=== PATIENT | female | born 1980 | race Caucasian/White ===

== ENCOUNTER → 2017-04-06 | Outpatient (CLI) | payer BC, OTHER ==
[2017-04-06 08:02] LABS: HCG, SERUM QUANTITATIVE < 1.0 MIU/ML
[2017-04-06 08:19] LABS: ESTRADIOL 59.1 PG/ML; FOLLICLE STIMULATING HORMONE 8.6 mIU/mL; LUTEINIZING HORMONE 4.1 mIU/mL; PROGESTERONE 0.4 NG/ML
--- NOTE | 2017-04-06 08:26 | REP ---
Transvaginal pelvic sonography: History: Infertility. Follicle study. Findings: Uterine dimensions are normal at 7.9 x 3.9 x 5.4 cm. Endometrial stripe is 0.9 cm thick and centrally placed. No free fluid is seen. No focal uterine mass. The overall dimensions of the right ovary are 3.2 x 2.2 x 2.2 cm. There are no follicles over a centimeter in the right ovary. There are 18 follicles seen in the right ovary ranging in size of 0.3-0.8 cm. The dimensions of the left ovary are 2.7 x 1.5 x 2.1 cm. There are no follicles over a centimeter in the left ovary today. There are 10 follicles in the left ovary ranging in size from 0.2-0.9 cm. No ovarian mass seen. Impression: Ovarian follicle study as above. Signed by Geovanny Burgos MD 04/06/2017 12:38 P
== END ==
LOC: M RAD 07:26
PROVIDERS: ATTEND Obstetrics & Gynecology Reproductive Endocrinology
DX: N97.9 Female infertility, unspecified (principal); N83.02 Follicular cyst of left ovary

== ENCOUNTER → 2017-04-10 | Outpatient (CLI) | payer BC, OTHER ==
--- NOTE | 2017-04-10 08:14 | REP ---
Pelvic ultrasound, endovaginal imaging for follicle evaluation: Right ovary: There are four follicles greater than 10 mm maximally measuring as follows: 13.1 mm, 12.9 mm, 12.4 mm, 12.8 mm. Additionally, there approximately 18 follicles measuring 2.8-8.9 mm. Right ovary measures 3.8 x 2.1 x 2.079. Left ovary: There are four follicles greater than 10 mm maximally measuring as follows: 2.5 mm of 16: Mm, 50.7 mm of 12.1 mm. Additionally, there are approximately 7 follicles measuring 3.6-7.8 mm. The left ovary measures 3.7 x 2.1 x 3.6 cm. The uterus is retroverted and measures 8.0 x 4.0 x 5 point centimeters. The endometrium measures 9.5 mm thickness and has a trilaminar appearance. Signed by Gurjit Rice MD 04/10/2017 08:05 A
[2017-04-10 09:25] LABS: LUTEINIZING HORMONE 0.8 mIU/mL; PROGESTERONE < 0.2 NG/ML
[2017-04-10 09:26] LABS: ESTRADIOL 421.4 PG/ML
== END ==
LOC: M RAD 07:24
PROVIDERS: ATTEND Obstetrics & Gynecology Reproductive Endocrinology
DX: E28.9 Ovarian dysfunction, unspecified (principal); N83.01 Follicular cyst of right ovary; N83.02 Follicular cyst of left ovary; N85.4 Malposition of uterus

== ENCOUNTER → 2017-04-13 | Outpatient (CLI) | payer BC, OTHER ==
--- NOTE | 2017-04-13 08:24 | REP ---
Transvaginal pelvic sonography: History: Infertility study. Findings: Transvaginal sonography again demonstrates a retroverted uterus measuring 9.4 x 4.4 x 5.6 cm. Endometrial stripe is 1.3 cm thick. There is a trace of fluid the cul-de-sac. No focal uterine mass is seen. The overall dimensions of the right ovary today are 5.2 x 3.3 x 3.8 cm. The right ovary contains 10 follicles over a centimeter measured as follows: 1.7 x 1.2, 1.5 x 1.7, 1.2 x 1.7, 1.0 x 0.8, 1.6 x 0.6, 2.7 x 1.6, 1.2 x 1.0, 1.1 by 0.7, 1.6 x 1.38, and 1.4 x 1.1 cm. In addition, the right ovary contains eight follicles ranging in size from 0.4-0.9 cm. The overall dimensions of the left ovary today are 4.9 x 3.2 x 2.5 cm. There are five follicles over a centimeter in the left ovary measured as follows: 2.0 x 1.2, 1.2 x 0.6, 2.6 x 1.5, 2.1 x 1.1, and 1.8 x 1.4 cm. In addition, the left ovary contains three follicles from 0.6-0.9 cm in size. Impression: Ovarian follicle study as above. Signed by Geovanny Burgos MD 04/13/2017 08:16 A
[2017-04-13 10:36] LABS: PROGESTERONE 0.4 NG/ML
[2017-04-13 10:37] LABS: LUTEINIZING HORMONE 0.9 mIU/mL
== END ==
LOC: M RAD 07:27
PROVIDERS: ATTEND Obstetrics & Gynecology Reproductive Endocrinology
DX: E28.9 Ovarian dysfunction, unspecified (principal); N85.4 Malposition of uterus; N83.01 Follicular cyst of right ovary; N83.02 Follicular cyst of left ovary

== ENCOUNTER → 2017-04-24 | Outpatient (CLI) | payer BC, OTHER ==
[2017-04-24 09:14] LABS: ESTRADIOL 1058.4 PG/ML
[2017-04-24 10:14] LABS: PROGESTERONE 69.5 NG/ML
== END ==
LOC: M LAB 06:40
DX: N97.9 Female infertility, unspecified (principal)
CPT/HCPCS: 84443

== ENCOUNTER → 2017-04-29 | Outpatient (CLI) | payer BC, OTHER ==
[2017-04-29 07:35] LABS: HCG, SERUM QUANTITATIVE 72 MIU/ML
[2017-04-29 09:27] LABS: PROGESTERONE 55.5 NG/ML
== END ==
LOC: M LAB 06:48
DX: N97.9 Female infertility, unspecified (principal)
CPT/HCPCS: 84702

== ENCOUNTER → 2017-05-01 | Outpatient (CLI) | payer BC, OTHER ==
[2017-05-01 07:54] LABS: HCG, SERUM QUANTITATIVE 132 MIU/ML
[2017-05-01 09:16] LABS: ESTRADIOL 994.7 PG/ML
== END ==
LOC: M LAB 07:00
DX: Z32.01 Encounter for pregnancy test, result positive (principal)
CPT/HCPCS: 84443

== ENCOUNTER → 2017-05-04 | Outpatient (CLI) | payer BC, OTHER ==
[2017-05-04 07:34] LABS: HCG, SERUM QUANTITATIVE 467 MIU/ML
[2017-05-04 08:55] LABS: PROGESTERONE 57.7 NG/ML
== END ==
LOC: M LAB 06:55
DX: Z32.01 Encounter for pregnancy test, result positive (principal)
CPT/HCPCS: 84702

== ENCOUNTER → 2017-06-08 | Outpatient (CLI) | payer BC, OTHER ==
[2017-06-08 13:40] LABS: BASO # 0.1 10^3/uL (0.0-0.2); BASO % 0.6 % (0.0-1.0); EOS # 0.5 10^3/uL (0.0-0.50); EOS % 4.6 % (0.0-3.0); HEMOGLOBIN 12.3 g/dl (12.0-16.0); LYMPH # 1.2 10^3/uL (1.5-4.5); LYMPH % 10.4 % (24.0-44.0); MEAN CORPUSCULAR HEMOGLOBIN 31.8 pg (27.0-33.0); MEAN CORPUSCULAR HGB CONC 33.2 g/dl (32.0-36.5); MEAN CORPUSCULAR VOLUME 95.6 fl (80.0-96.0); MONO # 0.6 10^3/uL (0.0-0.8); MONO % 5.7 % (0.0-5.0); NEUTROPHILS # 8.6 10^3/uL (1.8-7.7); NEUTROPHILS % 76.7 % (36.0-66.0); PLATELET COUNT, AUTOMATED 265 10^3/uL (150-450); RED BLOOD COUNT 3.87 10^6/uL (4.00-5.40); RED CELL DISTRIBUTION WIDTH 13.1 % (11.5-14.5); WHITE BLOOD COUNT 11.2 10^3/uL (4.0-10.0)
[2017-06-08 14:42] LABS: RUBELLA IgG QUALITATIVE IMMUNE (IMMUNE)
[2017-06-08 14:45] LABS: HBsAg Prenatal NEGATIVE (NEGATIVE)
[2017-06-08 15:12] LABS: HIV 1&2 SCREEN CENTAUR NEGATIVE (NEGATIVE)
[2017-06-08 16:14] LABS: CHLAMYDIA DNA AMPLIFICATION NEGATIVE (NEGATIVE); GC DNA AMPLIFICATION NEGATIVE (NEGATIVE)
== END ==
LOC: M SMT 09:12
DX: Z34.81 Encounter for supervision of other normal pregnancy, first trimester (principal); Z3A.09 9 weeks gestation of pregnancy

== ENCOUNTER → 2017-08-07 | Outpatient (CLI) | payer BC, OTHER | LOC: M RAD 08:36 | DX: Z36.9 Encounter for antenatal screening, unspecified (principal); Z3A.18 18 weeks gestation of pregnancy | CPT/HCPCS: 76811 ==

== ENCOUNTER → 2017-09-10 | Outpatient (CLI) | payer BC, OTHER | LOC: M RAD 15:50 | DX: O09.522 Supervision of elderly multigravida, second trimester (principal) | CPT/HCPCS: 76816 ==

== ENCOUNTER → 2017-10-15 | Outpatient (CLI) | payer BC, OTHER | LOC: M RAD 16:39 | DX: O43.893 Other placental disorders, third trimester (principal); Z36.89 Encounter for other specified antenatal screening; O32.1XX0 Maternal care for breech presentation, not applicable or unspecified; Z3A.28 28 weeks gestation of pregnancy | CPT/HCPCS: 76816 ==

== ENCOUNTER → 2017-11-02 | Outpatient (CLI) | payer BC, OTHER ==
[2017-11-05 00:09] LABS: HSV IgM TYPES 1&2 <0.91 Ratio (0.00-0.90); HSV TYPE I IgG SPECIFIC <0.91 index (0.00-0.90); HSV TYPE II IgG SPECIFIC <0.91 index (0.00-0.90)
== END ==
LOC: M SMT 15:13
DX: Z11.3 Encounter for screening for infections with a predominantly sexual mode of transmission (principal)
CPT/HCPCS: 86694

== ENCOUNTER → 2017-12-14 | Outpatient (REF) | payer OTHER | LOC: M LAB REF 17:49 | DX: Z34.83 Encounter for supervision of other normal pregnancy, third trimester (principal); Z36.85 Encounter for antenatal screening for Streptococcus B | CPT/HCPCS: 87081 ==

== ENCOUNTER 2018-01-11 03:30 | Inpatient (IN) | payer BC, OTHER ==
[2018-01-11 04:56] LABS: HEMATOCRIT 34.5 % (36.0-47.0); HEMOGLOBIN 11.5 g/dl (12.0-15.5); MEAN CORPUSCULAR HEMOGLOBIN 31.8 pg (27.0-33.0); MEAN CORPUSCULAR HGB CONC 33.3 g/dl (32.0-36.5); MEAN CORPUSCULAR VOLUME 95.3 fl (80.0-96.0); PLATELET COUNT, AUTOMATED 132 10^3/uL (150-450); RED BLOOD COUNT 3.62 10^6/uL (4.00-5.40); RED CELL DISTRIBUTION WIDTH 13.2 % (11.5-14.5); WHITE BLOOD COUNT 8.6 10^3/uL (4.0-10.0)
[2018-01-11] MEDS ORDERED: OXYTOCIN 30 UNITS IN 0.9% NaCl 500ML IV BAG (J2590) As Ordered (14:39)
[2018-01-11] MEDS: LR 1,000 ML IV (14:50)
[2018-01-11] MEDS: PROMETHAZINE INJ 25 MG/ML VIAL (J2550) IV (15:16)
[2018-01-11] MEDS: BUTORPHANOL 2 MG/ML INJ (J0595) IV (15:18)
[2018-01-11] MEDS: OXYTOCIN DRIP 30 UNITS in APPROPRIATE DILUENT 1 EA IV (15:20)
[2018-01-11] MEDS ORDERED: OXYTOCIN DRIP 30 UNITS in APPROPRIATE DILUENT 1 EA IV (18:06)
[2018-01-11] MEDS ORDERED: RHOGAM 300 MCG (1500 IU) INJ (J2790) IM (18:15)
[2018-01-11] MEDS ORDERED: DIBUCAINE 1% OINTMENT 30GM TOP (18:15)
[2018-01-11] MEDS ORDERED: METHYLERGONOVINE MALEATE 0.2 MG TAB PO (18:15)
[2018-01-11] MEDS ORDERED: MEASLES,MUMPS,RUBELLA VACCINE INJ (MMR-II) (90707) SC (18:15)
[2018-01-11] MEDS ORDERED: ACETAMINOPHEN 500 MG TAB PO (18:15)
[2018-01-11] MEDS ORDERED: DOCUSATE SODIUM 100 MG CAP PO (18:15)
[2018-01-11] MEDS ORDERED: LIDOCAINE 1% MDV 20ML VIAL As Ordered (18:40)
[2018-01-11] MEDS: LIDOCAINE 1% MDV 20ML VIAL INFIL (21:12)
[2018-01-11] MEDS: IBUPROFEN 800 MG TAB PO (21:13)
[2018-01-12] MEDS: IBUPROFEN 800 MG TAB PO ×3 (05:24→22:26)
[2018-01-12] MEDS: LEVOTHYROXINE 75MCG TABLET (0.075MG) PO (06:14)
[2018-01-12] MEDS: PRENATAL VITAMINS CHEWABLE TABLET PO (09:25)
[2018-01-12] MEDS: LACTATED RINGER'S 1000 ML IV (23:14)
[2018-01-13] MEDS: LEVOTHYROXINE 75MCG TABLET (0.075MG) PO (05:36)
[2018-01-13] MEDS: PRENATAL VITAMINS CHEWABLE TABLET PO (07:59)
[2018-01-13] MEDS: IBUPROFEN 800 MG TAB PO (07:59)
== END 2018-01-13 10:00 | disposition home or self-care (01) | DRG 560 ==
LOC: M LDO 03:30 → M LDI 04:23 → M OBS 22:00
PROVIDERS: Obstetrics & Gynecology
PROC: 10E0XZZ Delivery of Products of Conception, External Approach (ICD-10-PCS; principal; 2018-01-11)
PROC: 0KQM0ZZ Repair Perineum Muscle, Open Approach (ICD-10-PCS; 2018-01-11)
DX: O48.0 Post-term pregnancy (principal); O70.1 Second degree perineal laceration during delivery; Z37.0 Single live birth; Z3A.40 40 weeks gestation of pregnancy; Z88.1 Allergy status to other antibiotic agents

== ENCOUNTER → 2018-04-02 | Outpatient (CLI) | payer BC, OTHER ==
[2018-04-02 11:34] LABS: FREE T4 0.99 NG/DL (0.76-1.46)
[2018-04-02 11:53] LABS: TOTAL 25(OH) VITAMIN D 39.4 NG/ML (30.0-100.0)
== END ==
LOC: M LAB 09:26
DX: F53.0 Postpartum depression (principal)
CPT/HCPCS: 84443